=== PATIENT | female | born 1990 | race American Indian/Alaskan Native ===

== ENCOUNTER 2021-02-11 20:51 | Inpatient (IN) | payer MEDICAID, OTHER ==
--- NOTE | 2021-02-11 22:31 | History and Physical Report ---
History of Present Illness Date of examination: 02/11/21 Date of admission: 02/11/21 21:04 Chief complaint: here for induction of labor History of present illness: at 38.3wks by LMP c/w U/S; care at [facility] where pt was told she could have a TOLAC aware of previous indication for c/section failure to progress at 6cm. Pt denies feeling headache or contractions. pt admits to movement. Pt denies leakage of fluid or vaginal bleeding. From records pt was treated for trich this preg. pt admits to taking labetalol 100mg bid and this morning's dose taken and none taken at PM. records also state Rh positive, rubella non-immune, HIV, HepBsAg and RPR all negative. Pt also passed her 1hrgtt and GBS negative Past History Past Medical History: other (morbid obesity, chronic HTN diagnosed at 11wks this preg; Anemia; Rubella non-immune; Low vitamin D) Past Surgical History: no surgical history, section (x1) [employer] History: trichomonas (tx this preg and MAYO neg on 10/2020) Social history: no significant social history - Obstetrical History Expected Date of Delivery: 02/22/21 Actual Gestation: 38 Week(s) 4 Day(s) : 2 Para: 1 (c/s for FTP after 6cm, induction of labor) Number of Living Children: 1 Medications and Allergies Allergies Allergy/AdvReac Type Severity Reaction Status Date / Time cefaclor [From [facility]] Allergy Unknown Verified 10/17/13 20:00 Home Medications Medication Instructions Recorded Confirmed Last Taken Type Ferrous Sulfate [Iron Supplement] 1 tab PO DAILY 10/17/13 10/17/13 10/16/13 15:00 History Vit-Fe Fumar-FA [ 1 tab PO DAILY 10/17/13 10/17/13 10/17/13 15:00 History Vitamin] Ferrous Sulfate [Feosol 325 MG tab] 325 mg PO BID #60 tablet 10/20/13 Unknown Rx HYDROcodone/APAP 5-325 [[place] 1 each PO Q6HR PRN #30 tablet 10/20/13 Unknown Rx 5/325] Ibuprofen [Motrin] 800 mg PO Q8H PRN #30 tablet 10/20/13 Unknown Rx [id number]/Iron Fum/Folic/Docusate 1 each PO QDAY #30 tablet 10/20/13 Unknown Rx [ 19 Tablet] Review of Systems All systems: negative (none) - Vital Signs Vital signs: Vital Signs Pulse Pulse Ox 90 86 02/11/21 21:22 02/11/21 21:22 Temp Pulse Resp BP Pulse Ox 103 H 129/66 100 02/11/21 22:27 02/11/21 21:24 02/11/21 22:27 - Physical Exam Breasts: Positive: deferred Cardiovascular: Regular rate Lungs: Positive: Normal air movement Abdomen: Positive: soft (obese) Uterus: Positive: enlarged (non-tender, gravid) Extremities: Positive: normal - Obstetrical FHR: category 1 Uterine Contraction Monitor Mode: External Results Result Diagrams: 02/11/21 23:20 02/11/21 23:20 All other labs normal. Assessment and Plan Term , not in labor with previous section and chronic HTN diagnosed in the first trimester controlled with oral labetalol. Morbid obesity 1. Admit to labor and delivery, will hold labetalol med at this time with normal BP at this time and resume when BP >130/80's (now 120/66) 2. Check CBC, type and screen, CMP 3. Discussed with pt that the provider that promised her induction with previous c/section is not transformation consultant, and I will not induce a previous c/section not in labor 4. Pt will be allowed to eat and then NPO after midnight for her provider of choice to give her the desired plan of care; pt declined to go home all questions encouraged and answered
[2021-02-11] MEDS ORDERED: PROMETHAZINE 25 MG TAB PO PRN (22:39)
[2021-02-11] MEDS ORDERED: NalbUPHINE 10 MG/1 ML INJ IV PRN (22:39)
[2021-02-11] MEDS ORDERED: METHYLERGONOVINE MALEATE 0.2 MG/ML VIAL IM PRN (22:39)
[2021-02-11] MEDS ORDERED: OXYTOCIN 10 UNIT/1 ML INJ IM PRN (22:39)
[2021-02-11] MEDS ORDERED: fentaNYL 100 MCG/2 ML INJ IV PRN (22:39)
[2021-02-11] MEDS ORDERED: LIDOCAINE (2%) 20 MG/1 ML VIAL 20 ML MDV INFILTRATI ONE (22:39)
[2021-02-11] MEDS ORDERED: LOPERAMIDE 2 MG CAP PO PRN (22:39)
[2021-02-11] MEDS ORDERED: miSOPROStol 200 MCG TAB PR PRN (22:39)
[2021-02-11] MEDS ORDERED: CARBOPROST TROMETHAMINE 250 MCG/1 ML INJ IM PRN (22:39)
[2021-02-11] MEDS ORDERED: ONDANSETRON 4 MG/2 ML INJ IV PRN (22:39)
[2021-02-11] MEDS ORDERED: ACETAMINOPHEN 325 MG TAB PO PRN (22:39)
[2021-02-11] MEDS ORDERED: TERBUTALINE 1 MG/1 ML INJ SUB-Q PRN (22:39)
[2021-02-11] MEDS ORDERED: ePHEDrine SULFATE 50 MG/1 ML INJ IV PRN (22:39)
[2021-02-11] MEDS ORDERED: MINERAL OIL 30 ML ORAL LIQD PO PRN (22:39)
[2021-02-11] MEDS ORDERED: LACTATED RINGERS 1,000 ML IV SCH (22:45)
[2021-02-11] MEDS ORDERED: OXYTOCIN DRIP 30 UNITS/500 ML BAG IV SCH (23:00)
[2021-02-12 01:01] LABS: Hematocrit 30.7 % (30.3-42.9); Mean Corpuscular HGB Conc 33 % (30-34); Mean Corpuscular Volume 84 fl (79-97); Platelet Count 241 K/mm3 (140-440); Red Blood Count 3.67 M/mm3 (3.65-5.03); Red Cell Distribution Width 15.9 % (13.2-15.2)
[2021-02-12 01:25] LABS: Alanine Aminotransferase 8 units/L (7-56); Albumin 3.4 g/dL (3.9-5); Blood Urea Nitrogen 11 mg/dL (7-17); Hemolysis Index 6
[2021-02-12 01:26] LABS: BUN/Creatinine Ratio 18
[2021-02-12 01:41] LABS: Uric Acid 4.3 mg/dL (3.5-7.6)
--- NOTE | 2021-02-12 09:43 | Event Note ---
Date: 02/12/21 Patient strongly desired the opportunity for TOLAC however was informed today by myself that patient is with history of prior C-sections are not induced with induction agents. Given no indication for delivery today would recommend patient go home and try to go into natural labor. Given history of and now full-term we will schedule a repeat for February 19, 2021 as end date.
--- NOTE | 2021-02-12 09:48 | Discharge Summary ---
Providers - Providers Date of Admission: 02/11/21 21:04 Date of discharge: 02/12/21 Attending physician: REGGIE LANIER Primary care physician: REGGIE LANIER Hospitalization Reason for admission: observation (h/o c/s x 1, desiring TOLAC, not in labor) baby: male Hospital course: 30-year-old G2, P1 at 38 weeks 4 days, family history, hypertension on labetalol 100 mg twice daily and history of x1 was incorrectly admitted for induction of labor, however given history of TOLAC, patient was informed by provider that patient with prior history of are not induced with induction agents. Patient strongly desiring TOLAC was agreeable to go home to try return in active labor given now 38 to 39 weeks we will plan for a scheduled repeat on February 19, 2021 as end date. Condition at discharge: Good Disposition: 01 HOME / SELF CARE / HOMELESS Plan - Provider Discharge Summary Activity: routine Diet: routine Instructions: routine Additional instructions: [] Smoking cessation referral if applicable(refer to patient education folder for contact #) [] Refer to [facility] Booklet Call your doctor immediately for: * Fever > 100.5 * Heavy vaginal bleeding ( >1 pad per hour) * Severe persistent headache * Shortness of breath * Reddened, hot, painful area to leg or breast * Drainage or odor from incision. * Keep incision clean and dry at all times and follow doctor's instructions regarding bathing/showering - Follow up plan Follow up: REGGIE LANIER MD [Primary Care Provider] - 7 Days
[2021-02-12 10:27] VITALS: BP 143/80
--- NOTE | 2021-02-12 10:48 | Ultrasound Report ---
US OB follow up INDICATION: Estimated weight. TECHNIQUE: Transabdominal. COMPARISON: None available. FINDINGS: There is a single intrauterine . Position: transverse. Biparietal Diameter = 8.8 cm Head Circumference = 33.9 cm Abdominal Circumference = 33.8 cm Femur Length = 7.3 cm Heart Rate: 166 beats per minute. Estimated Weight in grams (if calculated): 3227 IMPRESSION: 1. weight is 3227 grams which is 39th percentile. AUA i s 37w and 3d. 2. No significant sonographic abnormality. Signer Name: Chay Coburn MD Signed: 02/12/2021 10:44 AM Workstation Name: [id number]
== END 2021-02-12 10:45 | disposition home or self-care (01) | DRG 781 ==
LOC: LD 21:04
PROVIDERS: ADMIT Obstetrics & Gynecology; ATTEND Obstetrics & Gynecology
DX: O16.3 Unspecified maternal hypertension, third trimester (principal); Z3A.38 38 weeks gestation of pregnancy; O34.219 Maternal care for unspecified type scar from previous cesarean delivery; Z20.822 Contact with and (suspected) exposure to COVID-19; O99.213 Obesity complicating pregnancy, third trimester; E66.01 Morbid (severe) obesity due to excess calories
CPT/HCPCS: 36415; 76816; 80053; 83615; 84550; 85027; 86850; 86900; 86901; G0378; J7120; U0003